=== PATIENT | male | born 1950 | race Caucasian/White ===

== ENCOUNTER → 2025-03-21 15:43 | Outpatient (REF) | payer MEDICARE, SELFPAY | LOC: HWRCS 15:43 | PROVIDERS: ATTENDING PHYSICIAN Internal Medicine Cardiovascular Disease; FAMILY PHYSICIAN Family Medicine | DX: R94.31 Abnormal electrocardiogram [ECG] [EKG] (principal) | CPT/HCPCS: 93306 ==